=== PATIENT | female | born 1940 | race Hispanic/Latino ===

== ENCOUNTER 2018-07-25 08:17 | Inpatient (IN) | payer MEDICARE ==
[~2018-07-25] VITALS: Ht 160 cm; Wt 67.3 kg
[~2018-07-25 08:17] MED LIST: ALENDRONATE SOD70 MG PO; ASPIR 8181 MG PO; CLONIDINE HCL0.1 MG PO; GLIPIZIDE5 MG PO; LISINOPRIL10 MG PO; LOSARTAN POTAS100 MG PO; LOVASTATIN20 MG PO; QUETIAPINE FUMA25 MG PO; SULINDAC200 MG PO; [UNRECOGNIZED DRUG - OTHER]
[2018-07-25] MEDS ORDERED: ASPIRIN 81 MG CHEW TAB PO ONE ×2 (08:45→11:00)
--- NOTE | 2018-07-25 09:12 | Diagnostic Imaging Report ---
PROCEDURE: CHEST SINGLE (PORTABLE) COMPARISON: None. INDICATIONS: high blood pressure, chest pain FINDINGS: The lungs are well-inflated. No focal airspace consolidation, pleural effusion, or pneumothorax. Tortuous thoracic aorta with prominence of the right paratracheal region of the mediastinum, likely reflective of great vessel tortuosity and accentuated by rightward patient rotation. Heart size is normal. No overt pulmonary edema. No acute osseous abnormalities. Probable posttraumatic deformities of the right anterior fourth and fifth ribs. CONCLUSION: No acute thoracic abnormality. Dictated by: Telly Aquino M.D. on 07/25/2018 at 9:21 Electronically approved by: Telly Aquino M.D. on 07/25/2018 at 9:21
[2018-07-25 09:19] LABS: BASOPHILS % 0.3 % (0.0-1.0); EOSINOPHILS % 0.3 % (0.0-6.0); HEMATOCRIT 42.4 % (34.2-44.1); HEMOGLOBIN 14.4 g/dL (12.0-16.0); LYMPHOCYTES # (AUTO) 1.4 (1.0-3.2); LYMPHOCYTES % 15.1 % (18.0-39.1); MEAN CORPUSCULAR HEMOGLOBIN 31.2 pg (28-32); MEAN CORPUSCULAR VOLUME 91.8 fL (81-99); MONOCYTES # (AUTO) 0.4 (0.2-0.8); MONOCYTES % 4.2 % (4.4-11.3); NEUTROPHILS # (AUTO) 7.2 (2.1-6.9); NEUTROPHILS % 79.8 % (38.7-80.0); PLATELET COUNT 230 x10e3/uL (140-360); RED BLOOD COUNT 4.62 x10e6/uL (3.6-5.1); RED CELL DISTRIBUTION WIDTH 12.9 % (11.7-14.4)
[2018-07-25 09:40] LABS: ALANINE AMINOTRANSFERASE 25 IU/L (0-55); ALBUMIN 4.2 g/dL (3.5-5.0); ALBUMIN/GLOBULIN RATIO 1.2 (0.8-2.0); ALKALINE PHOSPHATASE 56 IU/L (40-150); BLOOD UREA NITROGEN 15 mg/dL (7-26); BUN/CREATININE RATIO 18 (6-25); CALCIUM 9.9 mg/dL (8.4-10.2); CARBON DIOXIDE 25 mmol/L (22-29); CHLORIDE 100 mmol/L (98-107); CREATINE KINASE 78 IU/L (29-168); CREATININE, SERUM 0.84 mg/dL (0.57-1.11); EST GLOMERULAR FILTRATION RATE > 60 ML/MIN (60-); GLUCOSE 174 mg/dL (74-118); LIPASE 45 U/L (8-78); SODIUM 136 mmol/L (136-145)
[2018-07-25] MEDS ORDERED: BACLOFEN10 MG PO (10:01)
[2018-07-25] MEDS ORDERED: CALCIUM 500+D1 EACH PO (10:01)
[2018-07-25] MEDS ORDERED: PRAVASTATIN SOD10 MG PO (10:01)
[2018-07-25] MEDS ORDERED: ALENDRONATE SOD70 MG PO (10:01)
[2018-07-25] MEDS ORDERED: AMLODIPINE BESYL5 MG PO (10:01)
--- OUTSIDE RECORDS SUMMARY | 2018-07-25 10:55 | XMS REPORT ---
Author [facility] Address Unknown Phone Unavailable Care Team Providers Care Hot Box Operator Name Role Phone Liyah DEL ROSARIO Unavailable Unavailable Problems This patient has no known problems. Allergies, Adverse Reactions, Alerts This patient has no known allergies or adverse reactions. Medications This patient has no known medications. Results Test Description Test Time Test Comments Text Results Atomic Results Result Comments CHEST SINGLE (PORTABLE) 2018-07-25 09:21:00 [place] [id number] Patient Name: LUMA RAMESH MR #: [id number] : 1940 Age/Sex: 78/F Req #: [id number] Adm Physician: Ordered by: JULIOCESAR DEL ROSARIO MD Report #: [id number] Location: ER Room/Bed: Procedure: [id number] DX/CHEST SINGLE (PORTABLE) Exam Date: Exam Time: REPORT STATUS: Signed PROCEDURE: CHEST SINGLE (PORTABLE) COMPARISON: None. INDICATIONS: high blood pressure, chest pain FINDINGS: The lungs are well-inflated. No focal airspace consolidation, pleural effusion, or pneumothorax. Tortuous thoracic aorta with prominence of the right paratracheal region of the mediastinum, likely reflective of great vessel tortuosity and accentuated by rightward patient rotation. Heart size is normal. No overt pulmonary edema. No acute osseous abnormalities. Probable posttraumatic deformities of the right anterior fourth and fifth ribs. CONCLUSION: No acute thoracic abnormality. Dictated by: Gregorio Aquino M.D. on 07/25/2018 at 9:21 Electronically approved by: Gregorio Aquino M.D. on 07/25/2018 at 9:21 Dictated By: GREGORIO AQIUNO MD 0 Transcribed By: LEIF on 07/25/18920 COPY TO: JULIOCESAR DEL ROSARIO MD
[2018-07-25 14:00] VITALS: BP 143/65
[2018-07-25 14:11] VITALS: BP 143/64
[2018-07-25 15:06] LABS: CREATINE KINASE MB 20.9 ng/mL (0-5.0)
[2018-07-25] MEDS ORDERED: DEXTROSE 50% SYRINGE 50 ML IV PRN (16:00)
[2018-07-25] MEDS: METOPROLOL TARTRATE 25 MG TAB PO SCH (17:00)
[2018-07-25] MEDS ORDERED: ENOXAPARIN INJ 80 MG/0.8 ML SYR SC SCH (17:00)
[2018-07-25] MEDS: PANTOPRAZOLE SOD 40 MG TABEC PO SCH (17:00)
[2018-07-25] MEDS: ASPIRIN 325 MG TAB PO SCH (17:00)
[2018-07-25] MEDS: INSULIN REGULAR, HUMAN 100 UNIT/1 ML 3ML VIAL SQ SCH ×2 (18:31→21:15)
[2018-07-25 18:43] LABS: CREATINE KINASE MB 31.8 ng/mL (0-5.0)
[2018-07-25] MEDS ORDERED: CLOPIDOGREL BISULFATE 75 MG TAB PO ONE ×2 (19:15→21:30)
[2018-07-25 20:45] VITALS: BP 143/65
[2018-07-25] MEDS ORDERED: CRESTOR 10MG PO SCH (21:00)
[2018-07-25 21:35] VITALS: BP 144/65
[2018-07-26] VITALS (13 sets, daily range): BP systolic 118–145; BP diastolic 53–80
[2018-07-26] MEDS ORDERED: MORPHINE SULFATE 2 MG/ML SYR IV PRN
[2018-07-26] MEDS ORDERED: MORPHINE SULFATE INJ 4 MG/ML INJ IV PRN (00:45)
[2018-07-26 05:36] LABS: CREATINE KINASE MB 20.1 ng/mL (0-5.0)
[2018-07-26 05:58] LABS: CHOL/HDL RATIO 4.2 (3.0-3.6)
[2018-07-26] MEDS: INSULIN REGULAR, HUMAN 100 UNIT/1 ML 3ML VIAL SQ SCH ×4 (07:30→21:00)
[2018-07-26] MEDS ORDERED: ONDANSETRON HCL INJ 2 MG/ML VIAL IV PRN (07:45)
--- NOTE | 2018-07-26 08:03 | History and Physical ---
PRIMARY CARE PHYSICIAN: Dr. Guzman CHIEF COMPLAINT: Chest pain. HISTORY OF PRESENT ILLNESS: This is a 78-year-old woman with a history of diabetes mellitus, who has been having elevated blood pressure for the past 2 weeks, now developing substernal chest pain. Therefore, came to the hospital. Denies any shortness of breath, dizziness or nausea. Found to have uoc-WU-clefnwnxw NV. She was admitted for further evaluation and management PAST MEDICAL HISTORY: Hypertension, hyperlipidemia, diabetes mellitus, type 2, osteoporosis. PAST SURGICAL HISTORY: Cholecystectomy. ALLERGIES: PER ELECTRONIC MEDICAL RECORDS. FAMILY HISTORY/SOCIAL HISTORY: Patient is . She has 11 children. No alcohol, illicits or cigarettes. MEDICATIONS: Per electronic medical record. REVIEW OF SYSTEMS: Denies any fever, chills, sweats, nausea, vomiting, diarrhea, leg pain, back pain, dizziness, vision changes. PHYSICAL EXAMINATION VITAL SIGNS: Have been reviewed. GENERAL: A tired-appearing woman resting in bed. HEENT: Anicteric. CARDIOVASCULAR: Normal S1 and S2. LUNGS: Moderate breath sounds. ABDOMEN: Soft, nontender and nondistended. EXTREMITIES: No edema or calf tenderness. NEUROLOGICAL: Alert and oriented times 3. Moving all extremities. SKIN: Dry. PSYCHIATRIC: Normal affect. LABS: Reviewed. MEDICATIONS: Reviewed. ASSESSMENT: This is a 78-year-old woman with: 1. Mrv-HQ-lgyilxw elevation myocardial infarction. 2. Diabetes mellitus, type 2: Hemoglobin A1c is 6.9 and LDL 105, triglycerides 155. 3. Hypertension. 4. Hyperlipidemia. 5. Osteoporosis. PLAN 1. Lovenox, Plavix, aspirin, statin, beta mian, BRIDGETTE inhibitor. 2. Echocardiogram. Cardiology consultation. 3. Blood pressure is currently controlled. Heart rate is okay. 4. PPI while on Lovenox. 5. Disposition. Follow up cardiology recommendations. The patient is currently stable at this time. Troponin peak was 6.271. It is now trending down to 5.872. Job#: [id number] DA
[2018-07-26] MEDS: METOPROLOL TARTRATE 25 MG TAB PO SCH ×2 (09:00→22:23)
[2018-07-26] MEDS: LISINOPRIL 2.5 MG TAB PO SCH (09:00)
--- NOTE | 2018-07-26 10:08 | Consultation ---
DATE OF CONSULTATION: July 26, 2018 CARDIOLOGY CONSULTATION REASON FOR CONSULTATION: Vnw-RN-gutjcijim myocardial infarction. HISTORY OF PRESENT ILLNESS: This is a 78-year-old woman with a history of hypertension, hyperlipidemia, diabetes mellitus, who presented to the emergency department with severe 10/10 chest pain. Patient's pain started the morning of admission, moderate to severe in intensity, associated with some epigastric discomfort and some mild shortness of breath. She is feeling well and reports only mild epigastric ongoing discomfort. Upon arrival here, she was noted to have upwards trending cardiac enzymes and she was started on Lovenox, Plavix, aspirin, and beta-blockers. REVIEW OF SYSTEMS: A 12-point review of systems was conducted, and is negative other than stated above in the HPI. PAST MEDICAL HISTORY: Hyperlipidemia, diabetes mellitus, hypertension, osteoporosis. PAST SURGICAL HISTORY: Cholecystectomy. PAST FAMILY HISTORY: No premature coronary artery disease or sudden cardiac . SOCIAL HISTORY: No illicit drug use, alcohol use, tobacco use. ALLERGIES: NO KNOWN DRUG ALLERGIES. MEDICATIONS: See medication reconciliation form. PHYSICAL EXAMINATION VITALS: Temperature is 97.1, heart rate is 57, respirations are 19, blood pressure is 127/59, oxygen saturation is 97% on room air. GENERAL: A well-appearing, elderly woman, lying comfortably in bed. HEENT: Head is normocephalic and atraumatic. Eyes: The extraocular movements are intact. Conjunctivae clear. NECK: No JVD. No bruits. CARDIOVASCULAR: Regular rate and rhythm. No murmurs. LUNGS: Clear to auscultation bilaterally. No wheezing. No rales. ABDOMEN: Soft, nontender, nondistended. Normoactive bowel sounds. EXTREMITIES: No clubbing, cyanosis or edema. VASCULAR: Two plus pulses. SKIN: Warm, dry and intact. NEUROLOGIC: No focal deficits noted. Cranial nerves are grossly intact. PSYCHIATRIC: Normal mood and affect. All laboratory data reviewed. Troponin 0.021, 1.1, 6.27, 5.8. CK was 217, CK-MB was 20. Creatinine 0.84, potassium 4. Hemoglobin A1c of 6.9. A 12-lead electrocardiogram showed sinus bradycardia. CARDIOVASCULAR MEDICATIONS: Reviewed. Chest x-ray shows no acute thoracic abnormality. IMPRESSIONS 1. Emi-CM-tlyajwxlw myocardial infarction. 2. Hypertension. 3. Diabetes mellitus. 4. Hyperlipidemia. 5. Hypertension. RECOMMENDATIONS: This patient has already ruled in for acute myocardial infarction. She has no ongoing pain. She is hemodynamically stable. Will continue current cardiovascular medications and order a 2-D echocardiogram. She will need a coronary angiogram with possible intervention. Risks, benefits, and alternatives were discussed with the patient and her daughter at bedside, and they agree to proceed. Further recommendations to follow. Job#: [id number] CASE
[2018-07-26] MEDS ORDERED: VERAPAMIL HCL 2.5 MG/ML 2 ML VIAL ONE ×2 (11:26→11:56)
[2018-07-26] MEDS ORDERED: MIDAZOLAM HCL 2 MG/2 ML VIAL ONE (11:26)
[2018-07-26] MEDS ORDERED: IOPAMIDOL 370 MG/ML 200 ML INFUS..BTL INJ ONE (11:27)
[2018-07-26] MEDS ORDERED: LIDOCAINE HCL 2% LOCAL 20 ML VIAL ONE (11:27)
[2018-07-26] MEDS ORDERED: FENTANYL CITRATE/PF 100MCG/2 ML INJ ONE (11:27)
[2018-07-26] MEDS ORDERED: HEPARIN SOD/SOD CHLORIDE 2,000 ML ONE (11:27)
[2018-07-26] MEDS ORDERED: SODIUM CHLORIDE 0.9% 1000ML 1,000 ML ONE (11:50)
--- NOTE | 2018-07-26 16:41 | Operative Report ---
DATE OF PROCEDURE: July 26, 2018 PROCEDURES PERFORMED 1. Conscious sedation, 26 minutes. 2. Selective coronary angiography times 2. 3. Left heart catheterization. PREOPERATIVE DIAGNOSIS: Ewq-SH-xbgndcg elevation myocardial infarction. POSTOPERATIVE DIAGNOSIS: Djp-ZK-iwocaru elevation myocardial infarction. ESTIMATED BLOOD LOSS: Less than 20 mL. SPECIMENS REMOVED: None. PROCEDURE IN DETAIL: After informed consent was obtained, the patient was brought to the cardiac catheterization laboratory in the fasting, nonsedated state. Bilateral groins were prepped and draped in the usual sterile fashion. The right wrist was prepped and draped in the usual sterile fashion. Two percent lidocaine was infiltrated in the right wrist for local anesthesia. Using micropuncture needle, the right radial artery was accessed via modified Seldinger technique, and a 6-Chinese sheath was placed. Next, diagnostic coronary angiography times 2 and left heart catheterization was performed using a TIG catheter. Everything was subsequently removed from the body over the wire. Hemostasis was achieved via a TR band. The patient tolerated the procedure well with no immediate complications. PROCEDURE FINDINGS 1. Left main coronary artery is patent without significant coronary artery disease. 2. Left anterior descending coronary artery is tortuous with mild diffuse luminal irregularities. 3. Left circumflex coronary artery is highly tortuous with 2 obtuse marginal vessels. OM-1 has a mild 20% to 30% non-flow limiting stenosis. 4. The right coronary artery is the dominant vessels and provides posterior descending coronary artery. 5. Left ventricular end-diastolic pressure is 11 mmHg with no aortic valve present upon pullback. IMPRESSION AND PLAN: This 78-year-old woman presented with mildly elevated troponins and was found to have tortuous vessels and nonobstructive coronary artery disease. Continue medical management. Job#: [id number] DA
[2018-07-26 20:19] LABS: CREATINE KINASE MB 7.6 ng/mL (0-5.0)
[2018-07-26] MEDS: CRESTOR 10MG PO SCH (22:23)
[2018-07-27] VITALS (7 sets, daily range): BP systolic 119–163; BP diastolic 59–67
[2018-07-27 03:13] LABS: CREATINE KINASE MB 4.5 ng/mL (0-5.0)
[2018-07-27 06:55] LABS: CREATINE KINASE MB 3.9 ng/mL (0-5.0)
[2018-07-27] MEDS ORDERED: ZOLPIDEM TARTRATE 5 MG TAB PO PRN (08:00)
[2018-07-27] MEDS: INSULIN REGULAR, HUMAN 100 UNIT/1 ML 3ML VIAL SQ SCH ×4 (09:02→20:55)
[2018-07-27] MEDS: METOPROLOL TARTRATE 25 MG TAB PO SCH ×2 (09:08→20:55)
[2018-07-27] MEDS: PANTOPRAZOLE SOD 40 MG TABEC PO SCH (09:08)
[2018-07-27] MEDS: ASPIRIN 325 MG TAB PO SCH (09:08)
[2018-07-27] MEDS: LISINOPRIL 2.5 MG TAB PO SCH (09:08)
[2018-07-27 11:02] LABS: CREATINE KINASE MB 3.5 ng/mL (0-5.0)
--- NOTE | 2018-07-27 20:44 | Progress Note ---
DATE: July 27, 2018 CARDIOLOGY PROGRESS NOTE SUBJECTIVE: No major events overnight. No further chest pain. OBJECTIVE VITAL SIGNS: Temperature 97.7, pulse 63, respiratory rate 19, blood pressure 135/63, satting 96% on room air. GENERAL: Elderly female, no acute distress. CARDIOVASCULAR: Regular rate and rhythm. No murmurs, rubs, or gallops. LUNGS: Clear to auscultation bilaterally. ABDOMEN: Soft, nontender, nondistended. NEURO AND PSYCH: Alert and oriented to person, place, and time. Normal affect. LABORATORY DATA: Reviewed. TELEMETRY DATA: Reviewed. IMAGING DATA: Reviewed. Cardiac catheterization yesterday showed no significant coronary artery disease. ASSESSMENT 1. Non-ST elevation myocardial infarction. 2. Hypertension. 3. Diabetes. 4. Hyperlipidemia. PLAN: Coronary angiography did not reveal any significant coronary lesions that may have caused her non-ST elevation [place]. May have been occult plaque rupture versus a small vessel occlusion. Continue current cardiovascular medications. We will add Plavix to her medications given the non-ST elevation [place]. Likely discharged tomorrow. Job#: [id number] RTY
[2018-07-27] MEDS: CRESTOR 10MG PO SCH (20:54)
[2018-07-28 00:36] VITALS: BP 122/57
[2018-07-28 06:11] VITALS: BP 123/60
[2018-07-28] MEDS ORDERED: LOPRESSOR25 MG PO (06:49)
[2018-07-28] MEDS ORDERED: PLAVIX75 MG PO (06:49)
[2018-07-28] MEDS ORDERED: PROTONIX40 MG/ML PO (06:49)
[2018-07-28] MEDS ORDERED: Rosuvastatin Calcium PO (06:49)
[2018-07-28 07:49] VITALS: BP 140/63
[2018-07-28] MEDS ORDERED: CLOPIDOGREL BISULFATE 75 MG TAB PO SCH (09:00)
[2018-07-28 09:01] VITALS: BP 140/63
[2018-07-28] MEDS: METOPROLOL TARTRATE 25 MG TAB PO SCH (09:38)
[2018-07-28] MEDS: LISINOPRIL 2.5 MG TAB PO SCH (09:38)
[2018-07-28] MEDS: ASPIRIN 325 MG TAB PO SCH (09:38)
[2018-07-28] MEDS: PANTOPRAZOLE SOD 40 MG TABEC PO SCH (09:38)
[2018-07-28] MEDS: INSULIN REGULAR, HUMAN 100 UNIT/1 ML 3ML VIAL SQ SCH (09:55)
[2018-07-28 12:08] VITALS: BP 120/67
== END 2018-07-28 12:54 | disposition home or self-care (01) | DRG 282 ==
LOC: ER 08:17 → ERHOLD 10:20 → MED/SURG2 13:37 → OBSVTOIN 07-26 13:49
PROVIDERS: ADMIT Internal Medicine; ATTEND Internal Medicine
PROC: 4A023N7 Measurement of Cardiac Sampling and Pressure, Left Heart, Percutaneous Approach (ICD-10-PCS; principal; 2018-07-26)
PROC: B2111ZZ Fluoroscopy of Multiple Coronary Arteries using Low Osmolar Contrast (ICD-10-PCS; 2018-07-26)
DX: I21.4 Non-ST elevation (NSTEMI) myocardial infarction (principal); E11.9 Type 2 diabetes mellitus without complications; I10 Essential (primary) hypertension; E78.5 Hyperlipidemia, unspecified; M81.0 Age-related osteoporosis without current pathological fracture; I25.10 Atherosclerotic heart disease of native coronary artery without angina pectoris; G47.00 Insomnia, unspecified
CPT/HCPCS: 36415; 71045; 80053; 80061; 82550; 82553; 82948; 83036; 83690; 83880; 84484; 85025; 93005; 93306; 93458; 99284; G0378; J1650; J2001; J2250; J2270; J7030; Q9967

== ENCOUNTER 2021-05-04 10:36 | Emergency (ER) | payer MEDICARE ==
[~2021-05-04] VITALS: Ht 160 cm; Wt 69.4 kg
[~2021-05-04 10:36] MED LIST changes: +AMLODIPINE BESYL5 MG PO; +BACLOFEN10 MG PO; +CALCIUM 500+D1 EACH PO; +COLACE100 MG PO; +LOPRESSOR25 MG PO; +MILK OF MA400 MG/5 M PO; +PLAVIX75 MG PO; +PRAVASTATIN SOD10 MG PO; +PROTONIX40 MG/ML PO; +Rosuvastatin Calcium PO; +SENOKOT8.6 MG PO; +ZOFRAN4 MG PO
[2021-05-04 11:33] LABS: BASOPHILS % 0.1 % (0.0-1.0); EOSINOPHILS % 0.3 % (0.0-6.0); HEMATOCRIT 32.8 % (34.2-44.1); HEMOGLOBIN 10.3 g/dL (12.0-16.0); LYMPHOCYTES # (AUTO) 1.2 (1.0-3.2); LYMPHOCYTES % 10.7 % (18.0-39.1); MEAN CORPUSCULAR HEMOGLOBIN 29.7 pg (28-32); MEAN CORPUSCULAR HGB CONC 31.4 g/dL (31-35); MEAN CORPUSCULAR VOLUME 94.5 fL (81-99); MONOCYTES # (AUTO) 0.9 (0.2-0.8); MONOCYTES % 7.6 % (4.4-11.3); NEUTROPHILS # (AUTO) 9.3 (2.1-6.9); NEUTROPHILS % 80.8 % (38.7-80.0); PLATELET COUNT 195 x10e3/uL (140-360); RED BLOOD COUNT 3.47 x10e6/uL (3.6-5.1); RED CELL DISTRIBUTION WIDTH 15.8 % (11.7-14.4)
[2021-05-04 11:44] LABS: INR 0.91; PROTHROMBIN TIME 12.5 seconds (11.9-14.5)
[2021-05-04 11:45] LABS: PARTIAL THROMBOPLASTIN TIME 25.1 seconds (23.8-35.5)
[2021-05-04 11:50] LABS: ALBUMIN 2.9 g/dL (3.5-5.0); ALBUMIN/GLOBULIN RATIO 0.9 (0.8-2.0); ANION GAP 13.6 mmol/L (8-16); CALCIUM 8.9 mg/dL (8.4-10.2); CREATININE, SERUM 0.99 mg/dL (0.57-1.11); POTASSIUM 4.6 mmol/L (3.5-5.1)
[2021-05-04] MEDS ORDERED: SODIUM CHLORIDE 0.9% 1000ML 1,000 ML IV STA (12:32)
[2021-05-04] MEDS ORDERED: IOPAMIDOL 370 MG/ML 200 ML INFUS..BTL INJ ONE (12:56)
[2021-05-04] MEDS ORDERED: SODIUM CHLORIDE 0.9% 50ML 50 ML ONE (12:56)
[2021-05-04 14:25] LABS: CLARITY,URINE CLEAR (CLEAR); COLOR,URINE YELLOW (YELLOW); KETONES,URINE NEGATIVE (NEGATIVE); LEUKOCYTE ESTERASE ,URINE NEGATIVE (NEGATIVE); NITRITE,URINE NEGATIVE (NEGATIVE); PROTEIN,URINE DIPSTICK 1+ (NEGATIVE); URINE UROBILINOGEN 0.2 mg/dL (0.2 - 1)
[2021-05-04 15:11] LABS: BACTERIA,URINE RARE /HPF; EPITHELIAL CELLS,URINE RARE /LPF; RBC,URINE 0-5 /HPF (0-5); WBC,URINE (MAN) 0-5 /HPF (0-5)
[2021-05-04] MEDS ORDERED: COLACE100 MG PO (16:26)
== END 2021-05-04 17:11 | disposition home or self-care (01) ==
LOC: ER 11:07
DX: K59.00 Constipation, unspecified (principal); R10.30 Lower abdominal pain, unspecified; R33.9 Retention of urine, unspecified; E11.65 Type 2 diabetes mellitus with hyperglycemia; D64.9 Anemia, unspecified; I10 Essential (primary) hypertension; E78.5 Hyperlipidemia, unspecified
CPT/HCPCS: 36415; 74177; 80053; 81001; 85025; 85610; 85730; 86850; 86900; 99284; J7030; Q9967

== ENCOUNTER 2021-09-02 09:17 | Emergency (ER) | payer MEDICARE ==
[~2021-09-02] VITALS: Ht 160 cm; Wt 69.4 kg
[2021-09-02 10:30] LABS: BASOPHILS % 0.2 % (0.0-1.0); EOSINOPHILS # (AUTO) 0.1 (0.0-0.4); EOSINOPHILS % 0.8 % (0.0-6.0); HEMATOCRIT 40.5 % (34.2-44.1); LYMPHOCYTES % 11.4 % (18.0-39.1); MEAN CORPUSCULAR HEMOGLOBIN 28.4 pg (28-32); MEAN CORPUSCULAR HGB CONC 32.1 g/dL (31-35); MEAN CORPUSCULAR VOLUME 88.4 fL (81-99); MONOCYTES # (AUTO) 0.6 (0.2-0.8); MONOCYTES % 6.8 % (4.4-11.3); NEUTROPHILS # (AUTO) 7.4 (2.1-6.9); NEUTROPHILS % 80.6 % (38.7-80.0); PLATELET COUNT 211 x10e3/uL (140-360); RED BLOOD COUNT 4.58 x10e6/uL (3.6-5.1); RED CELL DISTRIBUTION WIDTH 15.6 % (11.7-14.4)
[2021-09-02 10:52] LABS: ALBUMIN 3.2 g/dL (3.5-5.0); ALBUMIN/GLOBULIN RATIO 0.7 (0.8-2.0); ANION GAP 15.8 mmol/L (8-16); CALCIUM 9.9 mg/dL (8.4-10.2); CREATININE, SERUM 1.01 mg/dL (0.57-1.11); POTASSIUM 3.8 mmol/L (3.5-5.1)
[2021-09-02 12:17] LABS: CLARITY,URINE CLEAR (CLEAR); COLOR,URINE YELLOW (YELLOW)
[2021-09-02 12:18] LABS: KETONES,URINE NEGATIVE (NEGATIVE); LEUKOCYTE ESTERASE ,URINE NEGATIVE (NEGATIVE); NITRITE,URINE NEGATIVE (NEGATIVE); PROTEIN,URINE DIPSTICK >=300 (NEGATIVE)
[2021-09-02 12:31] LABS: BACTERIA,URINE MODERATE /HPF; EPITHELIAL CELLS,URINE FEW /LPF; WBC,URINE (MAN) 0-5 /HPF (0-5)
[2021-09-02] MEDS ORDERED: VENTOLIN HFA18 GM INH (12:58)
[2021-09-02] MEDS ORDERED: PREDNISONE50 MG PO (12:58)
== END 2021-09-02 13:07 | disposition home or self-care (01) ==
LOC: ER 09:51
DX: U07.1 COVID-19 (principal); R50.9 Fever, unspecified; R11.0 Nausea; E11.65 Type 2 diabetes mellitus with hyperglycemia; I10 Essential (primary) hypertension; E78.5 Hyperlipidemia, unspecified
CPT/HCPCS: 36415; 71045; 80053; 81001; 85025; 99283

== ENCOUNTER 2021-10-19 09:53 | Emergency (ER) | payer OTHER ==
[~2021-10-19] VITALS: Ht 160 cm; Wt 69.4 kg
[~2021-10-19 09:53] MED LIST changes: +PREDNISONE50 MG PO; +VENTOLIN HFA18 GM INH
[2021-10-19] MEDS ORDERED: KETOROLAC TROMETHAMINE 30 MG/ML VIAL IM STA (10:23)
== END 2021-10-19 10:37 | disposition home or self-care (01) ==
LOC: ER 10:00
DX: M79.602 Pain in left arm (principal); M79.601 Pain in right arm; M79.605 Pain in left leg; M79.604 Pain in right leg; I10 Essential (primary) hypertension; E11.9 Type 2 diabetes mellitus without complications; E78.5 Hyperlipidemia, unspecified
CPT/HCPCS: 93005; 99282; J1885

== ENCOUNTER 2021-11-04 09:50 | Emergency (ER) | payer MEDICARE, OTHER ==
[~2021-11-04] VITALS: Ht 160 cm; Wt 69.4 kg
[2021-11-04 11:38] LABS: BASOPHILS % 0.3 % (0.0-1.0); EOSINOPHILS # (AUTO) 0.1 (0.0-0.4); EOSINOPHILS % 1.1 % (0.0-6.0); HEMATOCRIT 27.8 % (34.2-44.1); LYMPHOCYTES # (AUTO) 1.1 (1.0-3.2); LYMPHOCYTES % 11.8 % (18.0-39.1); MEAN CORPUSCULAR HEMOGLOBIN 29.7 pg (28-32); MEAN CORPUSCULAR HGB CONC 32.4 g/dL (31-35); MEAN CORPUSCULAR VOLUME 91.7 fL (81-99); MONOCYTES # (AUTO) 0.5 (0.2-0.8); MONOCYTES % 5.5 % (4.4-11.3); NEUTROPHILS # (AUTO) 7.6 (2.1-6.9); NEUTROPHILS % 80.8 % (38.7-80.0); PLATELET COUNT 63 x10e3/uL (140-360); RED BLOOD COUNT 3.03 x10e6/uL (3.6-5.1); RED CELL DISTRIBUTION WIDTH 16.8 % (11.7-14.4)
[2021-11-04 11:58] LABS: ALBUMIN 2.9 g/dL (3.5-5.0); ALBUMIN/GLOBULIN RATIO 0.8 (0.8-2.0); ANION GAP 18.6 mmol/L (8-16); CALCIUM 8.6 mg/dL (8.4-10.2); CREATININE, SERUM 5.22 mg/dL (0.57-1.11); POTASSIUM 4.6 mmol/L (3.5-5.1)
[2021-11-04 13:41] VITALS: BP 119/59
== END 2021-11-04 13:48 | disposition home or self-care (01) ==
LOC: ER 10:21
DX: I12.0 Hypertensive chronic kidney disease with stage 5 chronic kidney disease or end stage renal disease (principal); E11.22 Type 2 diabetes mellitus with diabetic chronic kidney disease; N18.6 End stage renal disease; Z99.2 Dependence on renal dialysis; E78.5 Hyperlipidemia, unspecified
CPT/HCPCS: 36415; 71045; 80053; 85025; 99283

== ENCOUNTER → 2023-02-05 | Outpatient (CLI) | payer MEDICARE | LOC: US 15:16 | PROVIDERS: ATTEND Urology | DX: N18.9 Chronic kidney disease, unspecified (principal); D41.02 Neoplasm of uncertain behavior of left kidney; N28.1 Cyst of kidney, acquired; N13.30 Unspecified hydronephrosis | CPT/HCPCS: 76770 ==